=== PATIENT | male | born 1945 | race Caucasian/White ===

== ENCOUNTER → 2019-02-27 | Outpatient (CLI) | payer OTHER, MEDICARE ==
[~2019-02-27] VITALS: Ht 180.3 cm; Wt 93.0 kg
[~2019-02-27] MED LIST: ALLOPURINOL 30300 M2 PO; ASPIR 8181 M1 PO; BYSTOLIC 5 MG5 M1 PO; COZAAR 25 MG TA25 MG PO; FISH OIL 1,001000 M2 PO; FLOMAX0.4 MG PO; GLIMEPIRIDE4 MG PO; LEVEMIR PO; LEVOTHYROXIN0.175 MG PO; NEURONTIN 300300 M1 PO; OXYCODON-ACETA1 EAC1 PO; PERCOCET 7.5-31 EACH PO; TRICOR145 MG PO; TURMERIC 500 M1 EACH PO; VICTOZA0.6 MG/0.1 SUBQ; VITAMIN D2000 UNIT PO; VOLTAREN GEL 1100 G2 TOP; ZETIA10 MG PO
--- NOTE | ~2019-02-27 | HPC ---
[facility] [place] [address] PAIN MANAGEMENT CONSULTATION Name: ALLA CROSS [id number] Ad[facility]: 02/27/19 Attend Phys: Diogenes Spain MD Discharge: Date of : 49 Report #: [id number] THIS REPORT FOR: //name// CC: Deepak Spain DATE OF SERVICE: 02/27/2019 CHIEF COMPLAINT: Widespread pain. The patient is a pleasant gentleman I am seeing today at the request of Dr. Deepak Andrews, his dry wall installer. He has longstanding diffuse pain. He has pain primarily in his hips, knees, shoulders and fingers. Most of this is arthropathy. He has had carpal tunnel surgery in the past. He has also had low back issues, which was treated with laminectomy at L4-L5 by ____. Since that time, he has had to self-cath in the evening for complete bladder emptying and he does have at times when he is going out as well. His pain in his back, however, has been better. He has been on longstanding pain medication. He has been recently told that he needs to get off of it. He is here today to discuss his pain medication and any other options we have for treatment. MEDICATIONS: Victoza; turmeric; gabapentin 300 mg 3 capsules b.i.d.; levothyroxine; fenofibrate; allopurinol; glimepiride; Levemir; aspirin; Bystolic; Zetia; Voltaren gel, intermittent. Oxycodone 7.5/325. Losartan. Tamsulosin. ALLERGIES: JANUVIA intolerance, P.O. GILATAZONE causes a jitteriness and palpitations. Reports also an intolerance to STATINS, QUININE and a true allergy to SULFA. REVIEW OF SYSTEMS: The patient reports fatigue and weakness, blurred vision at times, hearing loss, dyspnea on exertion and shortness of breath, palpitations and occasional chest pain. He has nocturia, frequency and reports a history of kidney stones. He describes memory loss, nervousness and a history in the past of depression. He reports diabetes, heat and cold intolerance, easy bruisability and bleeding tendency and slow healing after cuts. 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 He denies use of tobacco; drinks socially, not regularly and definitely not daily. PAST MEDICAL HISTORY: Positive for insulin-dependent type 2 diabetes, diabetic chronic kidney disease, neurogenic bladder, obstructive sleep apnea, [place] [address] PAIN MANAGEMENT CONSULTATION Name: ALLA CROSS Room #: REG [facility] Lissett#: [id number] Admission: 02/27/19 Attend Phys: Diogenes Spain MD Discharge: Date of : 49 Report #: [id number] chronic renal insufficiency, reported polymyalgia rheumatica. PAST SURGICAL HISTORY: Coronary artery bypass grafting in 2006, Dr. Michele Tilley; carpal tunnel surgery, 2015; laminectomy fusion L4-L5, ____, 2013. PHYSICAL EXAMINATION: GENERAL: Pleasant gentleman, outgoing. VITAL SIGNS: Blood pressure 138/78, heart rate 79, BMI 28.6. Independently moves from sitting to standing position. His gait is moderately antalgic. HEENT: Reveals pupils equal and small, reactive to light. EOMs are intact. Mucous membranes are moist. CHEST: Clear to auscultation. CARDIAC: Rhythm is regular. I did not appreciate a murmur. ABDOMEN: Soft with no organomegaly. MUSCULOSKELETAL: Examination of the upper extremities reveals some tenderness of the shoulders and elbows bilaterally. Range of motion is reasonable with good internal and external rotation. No difficulty with abduction against resistance. Strength in the upper extremities is symmetrical biceps, triceps and bond runner. Sensation normal throughout the upper extremities. Tenderness is noted in the hips bilaterally. Tenderness of the knees as well. Straight leg raising does not reproduce radiculopathy. He has some tenderness on the left ankle and pain with range of motion testing passive. Deep tendon reflexes are absent in the lower extremities, bilateral knees and ankles. IMPRESSION: 1. Diffuse arthritis and arthropathy. 2. Status post laminectomy fusion L4-L5, only mild back pain. 3. Coronary artery disease, status post coronary artery bypass graft. 4. Hypertension. 5. Type 2 diabetes. 6. Reported history of renal insufficiency stage 3. 7. Longstanding use of oxycodone 7.5/325 four times daily. RECOMMENDATIONS: We had a lengthy discussion today at his visit. Total time spent with the patient over 45 minutes, the majority of which was spent in physical exam, review and consultation. He has been on opioids for over 5 years on a daily basis. He finds missing a single dose of his oxycodone causes some mild shaking which he believes is withdrawal and he is concerned about addiction. He is also concerned about continuing to receive medication due to current trends in primary care prescribing. He does report that the pain medication provides relief. He is grateful for that relief. He denies side effects. He has not listed constipation as a side effect. He continues to function well at his job as a real estate acquisition analyst which requires work with figures and it does not appear to interfere with that [address] [address] PAIN MANAGEMENT CONSULTATION Name: ALLA CROSS Room #: REG [facility].#: [id number] Admission: 02/27/19 Attend Phys: Diogenes Spain MD Discharge: Date of : 49 Report #: [id number] as well. He has denied any lost prescriptions or red flag behaviors. He has used the CDC guidelines. He has had a single prescriber. Review of the prescription drug monitoring information shows prior prescriptions provided by Dr. Lanza or his advanced nurse practitioner who he has seen also in the past under Dr. Lanza's direction. Dr. Aguirre has also provided gabapentin for him at high dose. I have given him some recommendations for slow tapering of his medication. I would recommend no more than 2.5 mg reduction per month, but if he gradually reduces his oxycodone by 2.5 mg monthly, he may be able to withdraw himself without significant symptoms of withdrawal. Bigger concern is how he will manage his pain once he is off the oxycodone and whether it truly is harmful for him as a misused drug or whether he is using it cautiously as a medication. By my initial assessment, I would suggest the latter. He does not appear to be misusing abusing or taking the medication in an inappropriate. His morphine milligram equivalency per day is 45. He is not a good candidate for other medications and has already on a significant polypharmacy and a high dose of gabapentin. He should absolutely stay clear of nonsteroidal anti-inflammatory drugs in my opinion based upon his renal issues. I see no reason why he cannot stay on oxycodone indefinitely based upon my initial assessment. His primary care physician can certainly provide this for him at an MME level of 45. We would be happy to see him back in the pain clinic in consultation if necessary. By: [id number] Diogenes Spain MD /nt
[2019-02-27 09:13] VITALS: BP 138/78
--- NOTE | 2019-02-27 10:21 | NUR ---
Pain Clinic Assessment: 1. History of Osteoarthritis: knees hands History of Rheumatoid Arthritis: Not Applicable 2. Height: 5 ft. 11 in. 180.3 cm. Weight: 205.0 lb. oz. 92.988 kg. Patient's BMI: 28.6 3. Vital Signs: BP: 138/78 Pulse: 79 Resp: 16 Temp: 02 Sat: 98 ECG Mon: 4. Pain Intensity: 5. Fall Risk: Dizziness: Y Needs help standing or walking: N Fallen in the last 3 months: Y Fall risk comments: 6. Patient on Blood Thinner: None 7. History of Hypertension: Y 8. Opioid Therapy greater than 6 weeks: Y Opiate Contract Signed: 9. Risk Assessment Tool Provided: low-0 10. Functional Assessment Tool: 59/70 11. Recreational Drug Use: Never Drug Type: Tobacco Use: Never Smoker Tobacco Type: Amount or Packs/day: How Many Years: Alcohol Use: Yes Frequency: Special Occasions Quant:
== END ==
LOC: PAIN 06:48
DX: I10 Essential (primary) hypertension (principal); I25.10 Atherosclerotic heart disease of native coronary artery without angina pectoris; E11.9 Type 2 diabetes mellitus without complications; M19.90 Unspecified osteoarthritis, unspecified site

== ENCOUNTER → 2019-07-04 | Outpatient (CLI) | payer OTHER, MEDICARE | LOC: SJCVCIMAG 09:25 | DX: I35.1 Nonrheumatic aortic (valve) insufficiency (principal); I25.10 Atherosclerotic heart disease of native coronary artery without angina pectoris; I10 Essential (primary) hypertension; E78.00 Pure hypercholesterolemia, unspecified; E11.9 Type 2 diabetes mellitus without complications; Z79.82 Long term (current) use of aspirin; Z79.899 Other long term (current) drug therapy; Z79.4 Long term (current) use of insulin; Z95.1 Presence of aortocoronary bypass graft; Z87.891 Personal history of nicotine dependence; Z88.8 Allergy status to other drugs, medicaments and biological substances ==

== ENCOUNTER → 2020-02-09 | Outpatient (CLI) | payer OTHER, MEDICARE | LOC: SJCVC 14:03 | PROVIDERS: ATTEND Internal Medicine Cardiovascular Disease | DX: R94.31 Abnormal electrocardiogram [ECG] [EKG] (principal); I25.10 Atherosclerotic heart disease of native coronary artery without angina pectoris; E78.00 Pure hypercholesterolemia, unspecified; I77.9 Disorder of arteries and arterioles, unspecified; E11.22 Type 2 diabetes mellitus with diabetic chronic kidney disease; I12.9 Hypertensive chronic kidney disease with stage 1 through stage 4 chronic kidney disease, or unspecified chronic kidney disease; N18.30 Chronic kidney disease, stage 3 unspecified; G89.29 Other chronic pain; D64.9 Anemia, unspecified; Z78.9 Other specified health status; Z95.1 Presence of aortocoronary bypass graft; Z79.4 Long term (current) use of insulin; Z79.899 Other long term (current) drug therapy; Z87.891 Personal history of nicotine dependence ==

== ENCOUNTER → 2020-03-19 | Outpatient (CLI) | payer OTHER, MEDICARE | LOC: SJCVCIMAG 09:51 | PROVIDERS: ATTEND Internal Medicine Cardiovascular Disease | DX: I08.8 Other rheumatic multiple valve diseases (principal); I49.3 Ventricular premature depolarization; I25.10 Atherosclerotic heart disease of native coronary artery without angina pectoris; D64.9 Anemia, unspecified; I25.2 Old myocardial infarction; Z95.1 Presence of aortocoronary bypass graft; Z79.82 Long term (current) use of aspirin; Z79.899 Other long term (current) drug therapy ==

== ENCOUNTER → 2020-08-23 | Outpatient (CLI) | payer OTHER, MEDICARE | LOC: SJCVC 11:28 | PROVIDERS: ATTEND Internal Medicine Cardiovascular Disease | DX: I48.92 Unspecified atrial flutter (principal); R94.31 Abnormal electrocardiogram [ECG] [EKG]; I25.10 Atherosclerotic heart disease of native coronary artery without angina pectoris; I11.9 Hypertensive heart disease without heart failure; E11.9 Type 2 diabetes mellitus without complications; N18.30 Chronic kidney disease, stage 3 unspecified; I77.9 Disorder of arteries and arterioles, unspecified; I73.9 Peripheral vascular disease, unspecified; Z95.1 Presence of aortocoronary bypass graft; Z79.4 Long term (current) use of insulin; E78.00 Pure hypercholesterolemia, unspecified; E78.1 Pure hyperglyceridemia; Z87.891 Personal history of nicotine dependence; Z72.89 Other problems related to lifestyle ==